=== PATIENT | male | born 1960 | race Caucasian/White ===

== ENCOUNTER 2017-02-24 15:52 | Inpatient (IN) ==
[2017-02-24 17:28] LABS: MANUAL DIFF NEEDED? NO
[2017-02-24 17:30] LABS: BASO% 0.2 % (0.0-0.8); EOS# 0.16 X1000 (0.0-0.7); EOS% 1.6 % (0.0-10.0); HEMATOCRIT 47.2 % (42.0-52.0); HEMOGLOBIN 16.2 g/dL (14.0-18.0); IMM GRAN# 0.02 X1000 (0.0-0.04); IMM GRAN% 0.2 % (0.0-0.5); LYMPH# 2.71 X1000 (1.2-3.4); LYMPH% 27.4 % (20.5-51.1); MCH 33.2 PG (27-31); MCHC 34.3 g/dL (33-37); MCV 96.7 FL (81-99); MONO# 0.77 X1000 (0.11-0.59); MONO% 7.8 % (1.7-9.3); MPV 11.6 FL (7.4-10.4); NEUT% 62.8 % (42.2-75.2); PLT 169 X1000 (130-400); RBC 4.88 XMIL (4.7-6.1)
--- NOTE | 2017-02-24 17:35 | Diag Imaging Result Doc PS360 ---
EXAM: CHEST-2 VIEWS HISTORY: dizziness hypotension TECHNIQUE: Two views COMPARISON: None. FINDINGS: The lungs are well expanded. The heart is not enlarged. The vessels are not distended. There are no infiltrates. No pleural effusions. IMPRESSION: No acute abnormality. Electronically signed by Santiago Rosado 02/24/2017 5:33 PM
[2017-02-24 17:40] LABS: INR 1.02; PROTIME 10.7 Seconds (9.2-11.7)
[2017-02-24 17:55] LABS: MAGNESIUM 2.2 mg/dL (1.5-2.7); POTASSIUM 4.6 mmol/L (3.5-5.1); TOTAL BILIRUBIN 0.43 mg/dL (0.20-1.00); TOTAL PROTEIN 7.4 g/dL (6.3-8.3)
[2017-02-24] MEDS ORDERED: NS 1,000 ML IV ONE ×3 (18:34→22:38)
[2017-02-24 18:58] LABS: URINE MICRO REVIEW NEEDED? NO; URINE SOURCE CLEAN CATCH
[2017-02-24 19:14] LABS: BILIRUBIN URINE NEGATIVE (NEGATIVE); BLOOD URINE NEGATIVE (NEGATIVE); COLOR YELLOW; GLUCOSE URINE 100 mg/dL (NEGATIVE); LEUKOCYTES URINE TRACE (NEGATIVE); NITRITE URINE NEGATIVE (NEGATIVE); PROTEIN URINE 30 mg/dL (NEGATIVE); SP GRAVITY URINE 1.021; TURBIDITY URINE CLEAR (CLEAR); UROBILINOGEN URINE 2 mg/dL (NORMAL)
[2017-02-24 19:17] LABS: UR EPITHELIAL CELLS <10 /HPF (<10); URINE BACTERIA NEGATIVE /HPF; URINE CULTURE NEEDED? YES; URINE RBC <10 /HPF (<10); URINE WBC <10 /HPF (<10)
--- NOTE | 2017-02-24 19:31 | PROVIDER DOCUMENTATION ---
This chart was entered by Rani Rojas Scribe, acting as scribe for Agapito Gore PA. HPI-General Adult - General Chief Complaint: Dizziness Stated Complaint: LOW BP Time Seen by Provider: 02/24/17 18:18 Source: patient - History of Present Illness -Gen Adult Nature of Presenting Problems: Patient is a 56 year old male who presents in the ED with complaints of low blood pressure and dizziness. Patient states he has a history of hypertension for which he is prescribed Lisinopril 20mg, and states he possibly double dosed the medication this morning. He also states he began feeling dizzy, sweaty, became pale, and tremulous between 12:30 p.m. and 1:00 p.m., and states he had a friend check his vital signs and his oxygen saturation was in the 70's and his blood pressure was 78/44. He reports he feels improved now. He also reports he has had decreased urinary output over the last couple of days. Denies other symptoms. Location of Pain/Injury: reports: none Pain Radiation: reports: no radiation Quality of Pain: reports: none Severity: reports: mild, moderate Onset/Duration: reports: 4-6 hours ago (between 12:00 and 1:00 p.m.) Timing: reports: improving Context/Activities at Onset: reports: other (possibly double dosed Lisinopril this morning) Modifying Factors: improves with: nothing Associated Symptoms: reports: diaphoresis, dizziness, weakness, other (pale, tremulous) Similar Symptoms Previously?: No Recently seen or treated by another doctor?: No Review of Systems - Adult - REVIEW OF SYSTEMS - ADULT Constitutional: reports: see HPI, other (cold sweats, pale) Eyes: reports: no symptoms reported Ears, Nose, Mouth & Throat: reports: no symptoms reported Cardiovascular: reports: see HPI, other (low blood pressure) Respiratory: reports: no symptoms reported Gastrointestinal: reports: no symptoms reported Genitourinary: reports: no symptoms reported Musculoskeletal: reports: no symptoms reported Integumentary: reports: no symptoms reported Neurological: reports: see HPI, dizziness/vertigo, tremors Psychiatric: reports: no symptoms reported Endocrine: reports: no symptoms reported Hematologic/Lymphatic: reports: no symptoms reported Allergic/Immunologic: reports: no symptoms reported All Other Systems: Reviewed and Negative Past History - Adult - PAST MEDICAL HISTORY-ADULT Review of Records: reports: Nursing Assessment Review, Medications Reviewed Major Childhood Illnesses: reports: denies history Cardiovascular: reports: HTN Respiratory: reports: denies history Gastrointestinal: reports: denies history Obstetrical/Gynecological: reports: denies history Genitourinary: reports: denies history Musculoskeletal: reports: denies history Neurological: reports: denies history Psychiatric: reports: denies history Endocrine/Immune: reports: denies history Other Conditions: reports: denies history - PRIOR SURGERIES/PROCEDURES Surgical/Procedure History: reports: reviewed, not pertinent - IMMUNIZATION STATUS Childhood Immunizations: See Nurse Assessment Flu Vaccine: See Nurse Assessment - FAMILY HISTORY Family History: reviewed, not pertinent - SOCIAL HISTORY Smoking: denies, non-smoker Substance Use: none/never Alcohol Use Frequency: never Living Situation: family Physical Exam-General - PHYSICAL EXAM-ADULT Initial Vital Signs Reviewed: Yes - CONSTITUTIONAL General Appearance: alert, no apparent distress - EYES Eyes: PERRL/EOMI, pink conjunctivae - HEAD, EARS, NOSE, MOUTH & THROAT HENMT: normocephalic/atraumatic, moist mucous membranes - NECK Neck: full range of motion, supple - RESPIRATORY Respiratory: chest non-tender, lungs clear, normal breath sounds, no pleuratic chest pain, no respiratory distress, no accessory muscle use - CARDIOVASCULAR Cardiovascular: regular rate, rhythm, no edema, no gallop, no JVD, no murmur - GASTROINTESTINAL (ABDOMEN) Abdominal Exam: no organomegaly, no pulsatile mass - LYMPHATIC Lymphatic: no adenopathy - MUSCULOSKELETAL Back Exam: normal inspection Extremity: normal range of motion, non-tender, normal gait, no pedal edema - SKIN Integumentary: normal color, normal turgor, warm/dry - NEUROLOGIC Neurologic: grossly normal, no motor/sensory deficits - PSYCHIATRIC Psych/Mental Status: normal mood/affect, oriented x 3 Progress - PLAN OF CARE/RESULTS Progress/Plan/Lab Results: Vital Signs - 8 hr 02/24/17 16:12 Temperature 97.5 F L Pulse Rate 79 Respiratory Rate 16 Blood Pressure 105/75 O2 Sat by Pulse Oximetry 97 Laboratory Results - last 24 hr 02/24/17 02/24/17 02/24/17 16:28 16:28 16:28 WBC 9.89 RBC 4.88 Hgb 16.2 Hct 47.2 MCV 96.7 MCH 33.2 H MCHC 34.3 RDW Std Deviation 11.8 Plt Count 169 MPV 11.6 H Immature Gran % (Auto) 0.2 Neut % (Auto) 62.8 Lymph % (Auto) 27.4 [place] % (Auto) 7.8 Eos % (Auto) 1.6 Baso % (Auto) 0.2 Immature Gran # (Auto) 0.02 Neut # (Auto) 6.21 Lymph # (Auto) 2.71 [place] # (Auto) 0.77 H Eos # (Auto) 0.16 Baso # (Auto) 0.02 PT INR PTT (Actin FS) Sodium 138 Potassium 4.6 Chloride 95 L Carbon Dioxide 28 Anion Gap 15 BUN 43 H Creatinine 3.5 H Estimated GFR/1.73 m2 18 BUN/Creatinine Ratio 12 Glucose 195 H Calculated Osmolality 292 Calcium 9.0 Magnesium 2.2 Total Bilirubin 0.43 AST 30 ALT 37 Alkaline Phosphatase 66 Creatine Kinase 84 Troponin T Lse-P-Trevggyiunk Pept 491 H Total Protein 7.4 Albumin 4.0 Globulin 3.4 Albumin/Globulin Ratio 1.2 02/24/17 02/24/17 16:28 16:28 WBC RBC Hgb Hct MCV MCH MCHC RDW Std Deviation Plt Count MPV Immature Gran % (Auto) Neut % (Auto) Lymph % (Auto) [place] % (Auto) Eos % (Auto) Baso % (Auto) Immature Gran # (Auto) Neut # (Auto) Lymph # (Auto) [place] # (Auto) Eos # (Auto) Baso # (Auto) PT 10.7 INR 1.02 PTT (Actin FS) 26.0 Sodium Potassium Chloride Carbon Dioxide Anion Gap BUN Creatinine Estimated GFR/1.73 m2 BUN/Creatinine Ratio Glucose Calculated Osmolality Calcium Magnesium Total Bilirubin AST ALT Alkaline Phosphatase Creatine Kinase Troponin T < 0.010 Ioa-U-Pgfrahserbk Pept Total Protein Albumin Globulin Albumin/Globulin Ratio Orders Category Date Time Status ED: Orthostatic Vital Signs (E as directed Care 02/24/17 17:11 Active CHEST-2 VIEWS [RAD] Stat Exams 02/24/17 17:10 Completed CBC WITH ELECTRONIC DIFF [HEME] Stat Lab 02/24/17 16:28 Completed CK PROFILE [SP CHEM] Stat Lab 02/24/17 16:28 Completed COMPREHENSIVE METABOLIC PANEL [CHEM] Stat Lab 02/24/17 16:28 Completed MAGNESIUM [CHEM] Stat Lab 02/24/17 16:28 Completed PRO B-NATRIURETIC PEPTIDE Stat Lab 02/24/17 16:28 Completed PROTIME WITH INR [COAG] Stat Lab 02/24/17 16:28 Completed PTT [COAG] Stat Lab 02/24/17 16:28 Completed TROPONIN T Stat Lab 02/24/17 16:28 Completed EKG [EKG] Stat Ther 02/24/17 17:10 Ordered Will admit for acute kidney failure. Dr. Edwards in agreement. Result Diagrams: 02/24/17 16:28 02/24/17 16:28 - XRAY 1 XRAY Study: Chest Impression: Normal XRAY Interpretation: no acute abnormality - CONSULTS/PCP/HOSPITALIST Notification #1 *Consult/PCP/Hospitalist*: Dr. Lundy Time Discussed: 19:30 Consult Disposition: Admit Departure - Departure Date of Disposition Decision: 02/24/17 Time of Disposition Decision: 19:30 DIAGNOSIS: Hypotension Qualifiers: Hypotension type: hypotension due to drug Qualified Code(s): I95.2 - Hypotension due to drugs Acute kidney failure Qualifiers: Acute renal failure type: unspecified Qualified Code(s): N17.9 - Acute kidney failure, unspecified Disposition: ADMITTED INPATIENT 09 Certified Medical Emergency: Emergent Condition: Stable Referrals and Follow-Ups: None,PCP [Primary Care Provider] - - Critical Care Note This patient required my direct & personal management of CC.: No Attestation - Physician/ CRISTIAN Attestation Patient care was provided by Advanced Practice Provider:: Yes Advanced Practice Provider:: Agapito Gore Advanced Practice Provider documentation review:: The Mid-level provider documentation, treatment plan and medical decision making was reviewed by the physician who agrees with all treatment and medical decision making by the MLP. The physician spent face to face time with patient:: Yes Advanced Practice Provider documentation review:: Supervising physician onsite and consulted in the evaluation and care of this patient. The physician did have a face to face encounter with the patient. This chart was documented by the indicated scribe, (Rani Rojas Scribe) and accurately reflects the services I performed and decisions made by me, Agapito Gore PA, as attested by the provider's signature.
[2017-02-24 20:28] LABS: UR PROT RANDOM 42.3 mg/dL
[2017-02-24 20:50] LABS: UR CREAT RANDOM 343.6 mg/dL (14-26)
[2017-02-24] MEDS ORDERED: TYLENOL PO PRN (21:08)
[2017-02-24] MEDS ORDERED: ZOFRAN IV PRN (21:08)
[2017-02-24] MEDS: NEURONTIN PO SCH (22:24)
[2017-02-24] MEDS: HUMULIN R SUBQ SCH (22:25)
--- NOTE | 2017-02-24 23:34 | HISTORY AND PHYSICAL ---
CHIEF COMPLAINT: Weakness and passing out. This is a 56-year-old male with history of hypertension, diabetes. He is visiting the area for a horse show. He is from [place]. Typically he has noticed he has had low blood pressure, dizziness and he is on lisinopril and hydrochlorothiazide. He thought he possibly took 2 times the dose this morning, although I cannot get him to confirm that. I think he may have missed his medication and there may be some compliance issues. Around 12:30 to 1:00 p.m. he began feeling dizzy, sweaty and his O2 saturation was down the 70s, his blood pressure was reportedly 78/44, and he came in for evaluation. He states he has not urinated in 2 days. Denies any history of prostatic hyperplasia or any difficulty urinating. He denies any previous chronic renal problems. Denies any nausea, vomiting, diarrhea, although he does admit to poor p.o. intake the last 1-2 days. Workup in the ER did reveal some low-normal blood pressures, but no tachycardia. He was orthostatic. Blood pressure was 126/64 supine and dropped to 98/56 standing, and his heart rate went from 77 to 86. Patient was admitted and then his creatinine was 3.5, so he was admitted for acute renal failure. PAST MEDICAL HISTORY: 1. Hypertension. 2. Diabetes, non-insulin dependent. 3. Peripheral neuropathy, associated with diabetes. 4. Sleep apnea, which is untreated. PAST SURGICAL HISTORY: He has had 8 ribs fractured, but I do not think he has had any surgeries associated with it. Denies any other surgery. SOCIAL HISTORY: He smokes about a pack a day. He has done that for about 25 years. Alcohol frequently, it sounds like it is most days of the week, but then he says some weeks he does not drink any alcohol. When he does drink, it is about 2-3 drinks in a 24 hour period. FAMILY HISTORY: Mother had lung cancer. Diabetes. ALLERGIES: Denies any drug allergies. MEDICATIONS: He is on lisinopril/hydrochlorothiazide 20/12.5 daily, Glucophage 500 b.i.d., [place] p.r.n., gabapentin 800 b.i.d. REVIEW OF SYSTEMS: Ten systems reviewed. Otherwise negative. PHYSICAL EXAMINATION: VITAL SIGNS: Blood pressure currently 105/62, heart rate of 70, respiratory rate 18, temperature was 97.5 degrees. GENERALLY: Obese male, plethoric, in no acute distress. HEAD: Normocephalic, atraumatic. EYES: Pupils equal, round, reactive to light. Extraocular movements were intact. EAR/NOSE/THROAT: He had moist mucous membranes. Sclerae were injected. NECK: Supple. CARDIOVASCULAR: Regular rate and rhythm. No murmurs, gallops, or rubs. PULMONARY: Bilateral breath sounds. Clear to auscultation. GI: Soft, nontender, nondistended. Bowel sounds are positive. EXTREMITIES: No clubbing or cyanosis. LYMPHATICS: No peripheral edema. NEUROLOGICAL: Nonfocal. LABORATORY DATA AND IMAGING: BUN and creatinine 43 and 3.5. White count was normal. ProBNP 491. Urinalysis was really unremarkable. Chest x-ray was clear. ASSESSMENT: This is a 56-year-old, white male with history of hypertension, diabetes, presenting with syncope, orthostasis, acute renal failure likely related to dehydration or blood pressure antihypertensive effect. 1. Acute kidney injury. We will continue hydration, check urine electrolytes. Monitor on telemetry. Check renal ultrasound. If unimproved, we will consider a Nephrology consult tomorrow or at discretion of the primary team. 1. Diabetes. We will follow his blood sugars. Obviously, we have to hold his metformin currently with his current renal failure, continue sliding scale and monitor his blood sugars. 2. Hypertension. Obviously patient is on the hypotensive side. We will hold his medications because of his acute renal failure issues, including lisinopril/hydrochlorothiazide, morphine, avoid NSAIDs and follow clinically. DISPOSITION: Pending clinical course. Hopefully discharge in next 24 hours. cc: Aroldo Lundy MD
[2017-02-25 05:53] LABS: HEMATOCRIT 43.9 % (42.0-52.0); HEMOGLOBIN 14.5 g/dL (14.0-18.0); MCH 33.4 PG (27-31); MCV 101.2 FL (81-99); MPV 11.6 FL (7.4-10.4); RBC 4.34 XMIL (4.7-6.1)
[2017-02-25 06:12] LABS: CALCIUM 8.2 mg/dL (8.8-10.2); POTASSIUM 4.3 mmol/L (3.5-5.1)
[2017-02-25] MEDS: HUMULIN R SUBQ SCH (06:38)
--- NOTE | 2017-02-25 07:22 | EKG Report ---
Test Performed on : 02/24/2017 4:24:33 PM Test Reason : No Order in [facility] Blood Pressure : / mmHG Vent. Rate : 078 BPM Atrial Rate : 078 BPM P-R Int : 174 ms QRS Dur : 086 ms QT Int : 410 ms P-R-T Axes : 050 -25 056 degrees QTc Int : 467 ms Normal sinus rhythm. Low voltage QRS Inferior infarct , age undetermined Abnormal ECG No previous ECGs available Unconfirmed Result
[2017-02-25] MEDS: NEURONTIN PO SCH (08:09)
[2017-02-25] MEDS ORDERED: NORCO-10 PO SCH (09:00)
[2017-02-25] MEDS ORDERED: HEPARIN SUBQ SCH (09:00)
--- NOTE | 2017-02-25 09:57 | PROGRESS NOTE ---
DATE: 02/25/2017 SUBJECTIVE: A 56-year-old admitted yesterday. History of hypertension and diabetes. He came here for a horse show in [place]. He is from [place]. He told me that he brought 41 horses. Apparently sitting at a restaurant and he noticed real bright light. Began to feel dizzy. Apparently O2 saturations were down in the 70s when he arrived, blood pressure 78/44. He has not urinated in 2 days. Was by report, having difficulty urinating. Workup in the emergency room showed low-normal blood pressures, orthostasis. He has a history of hypertension, history of diabetes mellitus type 2, peripheral neuropathy, sleep apnea. He says he feels much better now. PAST SURGICAL HISTORY: He has had trauma history. He had 8 rib fractures in the past. He does not think he has had any surgeries to that. PHYSICAL EXAMINATION: General: He is sitting on the side of the bed and wants to go home. Vital Signs: Temperature has been afebrile with temperature of 98.5 degrees, pulse 85, respirations 20, blood pressure 109/64. Lungs: Are clear in all lung scott. Cardiovascular Examination: Regular rhythm and rate without murmur or S3. Abdomen: Soft. Skin: Warm and dry. LAB: White count 8220, hematocrit 43, platelet count 135,000. Electrolytes: Sodium 137, potassium 4.3, chloride 102, BUN 38. Note his creatinine was 3.5 and now is down to 2.2. MEDICATIONS: He reports that he is taking metformin and he was taking a backup medicine. He did not know what it was or he would not tell me what it was. His blood sugars, he said, were doing fine without it so he quit. Home medicines, it looks like he was on gabapentin 800 mg b.i.d., hydrocodone 10 p.r.n., lisinopril/hydrochlorothiazide 20/12.5 one a day, and he is taking metformin 500 mg b.i.d. ASSESSMENT AND PLAN: He is getting some normal saline. Renal function looks like it is improving. I am going to let him go home because he needs to get home. He has got several horses that he brought here to the horse show. He needs to hold the metformin and no diabetic medicine. I want him to drink a lot of fluid. He can continue the Neurontin. He needs to get followup with his primary care doctor when he gets there. Creatinine seems to be coming down. The blood sugars appear to be under fairly good control but he needs followup when he gets home. cc: Enrique Null MD
--- NOTE | 2017-02-25 10:13 | Diag Imaging Result Doc PS360 ---
US RENAL 2 (RETROPER) COMPLETE - 02/25/2017 INDICATION: asia/arf TECHNIQUE: COMPARISON: None FINDINGS: The kidneys and urinary bladder are normal. There is no hydronephrosis or mass. The right kidney measures 11.2 x 6.5 x 6.6 cm. The left kidney measures 12.3 x 7.1 x 6.5 cm. The liver appears moderately fatty. IMPRESSION: Normal exam of the urinary tract. Moderately fatty liver. Electronically signed by Gab Anthony 02/25/2017 10:11 AM
[2017-02-25 10:48] VITALS: BP 122/67
--- NOTE | 2017-03-12 18:43 | ED EKG INTERP ---
This chart was entered by Rani Rojas Scribe, acting as scribe for Melina Ortiz MD. EKG Interpretation - EKG Time of EKG reading by physician:: 16:24 EKG Read and Signed by:: Melina Ortiz EKG Interpretation (*Must complete 3 of following elements*): Abnormal Rate: 78 Rhythm: normal sinus rhythm [place]: normal QRS: other (low voltage QRS) ND Interval: normal ST Wave: normal Comments: inferior infarct, age undetermined Attestation - Physician/ CRISTIAN Attestation Patient care was provided by Advanced Practice Provider:: Yes Advanced Practice Provider documentation review:: The Mid-level provider documentation, treatment plan and medical decision making was reviewed by the physician who agrees with all treatment and medical decision making by the MLP. The physician spent face to face time with patient:: No Advanced Practice Provider documentation review:: Supervising physician onsite and consulted in the evaluation and care of this patient. The physician did not have a face to face encounter with the patient. This chart was documented by the indicated scribe, (Rani Rojas Scribe) and accurately reflects the services I performed and decisions made by me, Melina Ortiz MD, as attested by the provider's signature.
--- NOTE | 2017-04-13 16:19 | DISCHARGE SUMMARY ---
ADMISSION DATE: 02/24/2017 DISCHARGE DATE: 02/25/2017 HISTORY OF PRESENT ILLNESS: This is a 56-year-old with no primary care physician. History of hypertension and diabetes. He is visiting the area for a horse show. He is from [place]. Typically he noticed low blood pressure and dizziness. He is on lisinopril, hydrochlorothiazide and possibly took a double dose this morning. I could not get him to confirm that he missed his medications and there may have been some compliance issues. Around 12:30 to 1 o'clock he began to feel dizzy, sweaty, O2 saturations were in the 70s, blood pressure was 78/44 and he came in for evaluation. He had not urinated in a couple of days. He has a history of prostate hyperplasia. He denies any previous chronic renal problems. PAST MEDICAL HISTORY: Hypertension, diabetes mellitus type 2, peripheral neuropathy associated with diabetes, sleep apnea. PAST SURGICAL HISTORY: He had 8 rib fractures and had surgery associated with that. HOSPITAL COURSE: He was admitted with acute kidney injury. We gave him some hydration, IV fluids and followed his sugar and blood pressure. His serum creatinine was 2.2. The patient felt much better the following morning. Creatinine came from 3.5 down to 2.2 and he really wanted to go home. He home. I told him to hold his metformin. No diabetic medication. They can restart that at a later time. He was discharged. cc: Enrique Null MD
== END 2017-02-25 11:42 | disposition home or self-care (01) ==
LOC: ED 15:52 → SUATTDRO 21:01 → 4N 21:01
PROVIDERS: ATTEND Emergency Medicine